=== PATIENT | male | born 1980 | race Caucasian/White ===

== ENCOUNTER 2016-11-21 15:10 | Emergency (ER) | payer SELFPAY ==
[2016-11-21 15:17] VITALS: BP 141/95
--- NOTE | 2016-11-21 15:18 | ED Physician Documentation ---
General Adult - HISTORIAN Historian: patient - HPI Stated Complaint: Redness to Left Eye Chief Complaint: General Adult Onset: days ago Timing: still present Severity: moderate Further Comments: yes (Pt is a 36 yo male with L eye pain and redness. Pt was seen for this 2 days ago at [facility] and started on abx eye drops. Sx have worsened. Pt has severe pain with looking at light. Pt is noted to have anisocoria and injection of L eye only.) - ROS CONST: no problems EYES/ENT: other (L eye pain, injection.) CVS/RESP: none GI/: none MS/SKIN/LYMPH: none - PAST HX Past History: none Allergies/Adverse Reactions: Allergies Allergy/AdvReac Type Severity Reaction Status Date / Time No Known Allergies Allergy Verified 11/21/16 15:17 Home Medications: Ambulatory Orders Medication Instructions Recorded NK [NK] 11/21/16 - SOCIAL HX Smoking History: chew - FAMILY HX Family History: No - VITAL SIGNS Vital Signs: Vital Signs Temp Pulse Resp BP Pulse Ox 98 F 98 H 18 141/95 99 11/21/16 15:10 11/21/16 15:10 11/21/16 15:10 11/21/16 15:10 11/21/16 15:10 - REVIEWED ASSESSMENTS Nursing Assessment Reviewed: Yes Vitals Reviewed: Yes Progress - Progress Progress: Continue abx eye drops. f/u ophthalmology yakov--[facility]. Tel. [phone]. General Adult Physical Exam - PHYSICAL EXAM GENERAL APPEARANCE: moderate distress EENT: unequal pupils, other (scleral injection L eye) NECK: normal inspection, supple RESPIRATORY: no resp distress, chest non-tender CVS: reg rate & rhythm, heart sounds normal SKIN: warm/dry, normal color EXTREMITIES: normal range of motion NEURO: oriented X3, motor nml, sensation nml Discharge Clincal Impression: uveitis L eye Referrals: Primary Doctor,No [Primary Care Provider] - 2 Days Home Medications: Ambulatory Orders NK [NK] 11/21/16 Condition: Stable Disposition: 01 HOME, SELF-CARE Decision to Admit: NO Decision Time: 15:26
== END 2016-11-21 15:32 | disposition home or self-care (01) ==
LOC: ED 15:10
DX: H20.012 Primary iridocyclitis, left eye (principal)
CPT/HCPCS: 99283

== ENCOUNTER 2017-09-01 06:07 | Emergency (ER) | payer OTHER ==
[2017-09-01 06:36] LABS: EOSINOPHILS % 15.8 % (0.0-6.8); MEAN CORPUSCULAR HEMOGLOBIN 32.8 pg (28.0-34.0); MEAN CORPUSCULAR VOLUME 91.4 fl (80.0-100.0); MONOCYTES % 5.3 % (0.0-11.0)
[2017-09-01 06:53] LABS: eGFR (African) > 60; eGFR (Non-African) > 60
--- NOTE | 2017-09-01 06:57 | Diagnostic Imaging Report ---
CHINA EDWARDS (MCKAYLA) - ER [facility] [address] [facility] [address] [address] Report Submission Date: Sep 01, 2017 6:35:29 AM DEMURRAGE CLERK Patient Study Name: TAVO MCKINNEY Date: Sep 01, 2017 6:24:55 AM DEMURRAGE CLERK Modality Type: CR Gender: M Description: CHEST : 84 Institution: [facility] Physician: CHINA EDWARDS) - ER Chest PA and lateral views Clinical history: Cough for 1 month Normal heart shadow and mediastinum. Clear lungs without acute infiltrate or pleural effusion. Normal bony thorax. No pneumothorax. Impression: No active pulmonary pathology Electronically signed on Sep 01, 2017 6:35:29 AM DEMURRAGE CLERK by: Philip GUERRERO
--- NOTE | 2017-09-01 06:59 | ED Physician Documentation ---
Upper Respiratory Symptoms - HISTORIAN Historian: patient - HPI Stated Complaint: cough, right ear pain Chief Complaint: Cough/ Upper Respiratory Onset: other (over 2 months ) Duration: constant (He states he has increased cough at night ) Context: denies: recent foreign travel, insect bite(s), tick(s), recent chemotherapy, multiple patients, same sx Severity: moderate Associated Symptoms: fever (on and off fever and chills ), chills, earache, runny nose, sinus pain, sinus drainage, hoarseness, productive cough, shortness of breath, hurts to breathe. denies: sore throat, bloody cough Worsened by Deep Breath: Yes (he states when he tries to take a deep breath he has increaed cough ) Further Comments: yes (He states that about two months ago (Jun) he started with cough, congestion and sinus pressure he went to his [facility] and he was treated for bronchitis. He states that he did feel "some better" after he was off the medications for 2 weeks he started to cough again and the cough started to increase. He has had fever and chills on and off. He states he returned to the [facility] and was treated for reflux cough and was given zantac. He states that he has continued to cough and he is sleeping less that 3 hours at a time.) - ROS CONST/EYES: denies: weakness CVS/RESP: shortness of breath. denies: chest pain, palpitations LYMPH: denies: rash, swollen glands, ankle swelling GI/: denies: abdominal pain, problems urinating, vomiting, nausea NEURO/PSYCH: fainting (with coughing episodes ) MS/SKIN: denies: muscle aches, rash - PAST HX Lung Disease: none PE Risk Factors: none Surgeries/Procedures: none Immunizations: UTD Allergies/Adverse Reactions: Allergies Allergy/AdvReac Type Severity Reaction Status Date / Time coconut oil Allergy Verified 09/01/17 06:36 Home Medications: Ambulatory Orders Medication Instructions Recorded Albuterol Sulfate [Proair 90 mcg IH Q6 PRN 09/01/17 Respiclick] Propranolol HCl [Inderal] 40 mg PO BID 09/01/17 Ranitidine HCl 150 mg PO BID 09/01/17 - SOCIAL HX Smoking History: non-smoker, chew Alcohol Use: none Drug Use: none - FAMILY HX Family History: none - VITAL SIGNS Vital Signs: Vital Signs Temp Pulse Resp BP Pulse Ox 98.0 F 82 16 133/82 97 09/01/17 06:10 09/01/17 06:10 09/01/17 06:10 09/01/17 06:10 09/01/17 06:10 - REVIEWED ASSESSMENTS Nursing Assessment Reviewed: Yes Vitals Reviewed: Yes Progress - Progress Progress: 735: Discussed findings. pt is agreeable to plan. DG ED Results Lab/Radiology - Lab Results Lab Results: Lab Results 09/01/17 09/01/17 06:25 06:25 WBC 7.60 K/ul K/ul (4.00-12.00) RBC 5.35 M/ul H M/ul (3.90-5.20) Hgb 17.5 g/dL g/dL (12.0-18.0) Hct 48.9 % % (37.0-53.0) MCV 91.4 fl fl (80.0-100.0) MCH 32.8 pg pg (28.0-34.0) MCHC 35.9 g/dL g/dL (30.0-36.0) RDW 13.5 % % (11.3-14.3) Plt Count 258 K/mm3 K/mm3 (130-400) Neut % (Auto) 39.6 % % (39.0-79.0) Lymph % (Auto) 35.5 % % (16.0-50.0) [place] % (Auto) 5.3 % % (0.0-11.0) Eos % (Auto) 15.8 % H % (0.0-6.8) Baso % (Auto) 1.0 (0.0-1.5) Neut # (Auto) 3.0 # k/uL # k/uL (1.4-7.7) Lymph # (Auto) 2.7 # k/uL # k/uL (0.6-4.0) [place] # (Auto) 0.4 # k/uL # k/uL (0.0-0.9) Eos # (Auto) 1.2 # k/uL H # k/uL (0.0-0.6) Baso # (Auto) 0.1 # k/uL # k/uL (0.0-0.5) Reactive Lymphs % 2.8 % % (0.0-5.0) Reactive Lymphs # 0.2 # k/uL # k/uL (0.0-0.8) Sodium 139 mmol/L mmol/L (136-145) Potassium 4.2 mmol/L mmol/L (3.5-5.1) Chloride 103 mmol/L mmol/L (98-107) Carbon Dioxide 26 mmol/L mmol/L (22-30) BUN 10 mg/dL mg/dL (9-20) Creatinine 1.00 mg/dL mg/dL (0.66-1.25) Estimated Creat Clear 173 Est GFR ( Amer) > 60 (60 - ) Est GFR (Non-Af Amer) > 60 (60 - ) Glucose 96 mg/dL mg/dL (74-106) Calcium 9.2 mg/dL mg/dL (8.4-10.2) Total Bilirubin 0.9 mg/dL mg/dL (0.2-1.3) AST 36 U/L U/L (15-46) ALT 76 U/L H U/L (13-69) Alkaline Phosphatase 41 U/L U/L (38-126) Total Protein 7.6 g/dL g/dL (6.3-8.2) Albumin 4.1 g/dL g/dL (3.5-5.0) - Orders Orders: ED Orders Category Date Time Status CHEST P.A.&LAT 2 VIEWS [RAD] Stat Exams 09/01/17 Completed CBC/PLATELET/DIFF Routine Lab 09/01/17 06:25 Completed CMP Routine Lab 09/01/17 06:25 Completed INFLUENZA A&B Stat Lab 09/01/17 06:19 Ordered Ipratropium/Albuterol Sulfate [Duoneb] Med 09/01/17 07:16 Discontinued 3 ml NEB .STK-MED ONE Ipratropium/Albuterol Sulfate [Duoneb] Med 09/01/17 07:15 Discontinued 3 ml NEB NOW ONE Upper Respiratory Symptoms - EXAM General Appearance: no acute distress, alert EENT: eyes nml inspection Neck: normal inspection Respiratory: no resp. distress, wheezes (expiratory wheezing ). No: chest wall tenderness Abdomen: non-tender CVS: reg rate & rhythm, heart sounds normal, equal pulses, no murmur Skin: color nml, no rash, warm,dry Extremities: non-tender, normal range of motion, no edema Neuro/Psych: oriented x3, neuro intact, mood/affect nml Discharge Clincal Impression: Cough Referrals: Primary Doctor,No [Primary Care Provider] - 2 Days Comments: Claritin 10 mg daily Flonase 1 spray in each nostril daily Medrol dose Pack 4 mg take as directed Continue use of proair when needed Humidifier Possible burning wood Follow up with PCP for full work up if this does not respond Return to ER for any concerning symptoms Disposition: 01 HOME, SELF-CARE Decision to Admit: NO Date of Decison to Admit: 09/01/17 Decision Time: 07:30
[2017-09-01] MEDS ORDERED: IPRATROPIUM/ALBUTEROL SULFATE 3 ML AMPUL.NEB NEB ONE ×2 (07:15→07:16)
[2017-09-01 07:44] VITALS: BP 122/79
== END 2017-09-01 07:43 | disposition home or self-care (01) ==
LOC: ED 06:07
DX: R05 Cough (principal)
CPT/HCPCS: 71020; 80053; 85025; 87400; 94640; 99283

== ENCOUNTER 2018-01-19 12:53 | Emergency (ER) | payer SELFPAY ==
[2018-01-19] MEDS ORDERED: ORPHENADRINE CITRATE 60 MG/2ML IM ONE (13:23)
[2018-01-19] MEDS ORDERED: KETOROLAC TROMETHAMINE 60 MG/2 ML VIAL IM ONE (13:23)
[2018-01-19 13:57] VITALS: BP 140/98
--- NOTE | 2018-01-19 14:03 | ED Physician Documentation ---
Upper Extremity Injury - HISTORIAN Historian: patient - HPI Stated Complaint: right shoulder pain Chief Complaint: Upper Back Injury/ Pain Onset: other (Friday) Severity: moderate Duration: lasting Context: denies: fall, blow, incision, crush Modifying Factors: pain on movement Further Comments: yes (37 year old male patient presents with right shoulder pain. 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 Concerned his shoulder is out of place.) - ROS CONST: no problems CVS/RESP: none NEURO: none MS/SKIN/LYMPH: none GI/: denies: problems urinating, nausea, vomiting - PAST HX Past History: other (HTN) Allergies/Adverse Reactions: Allergies Allergy/AdvReac Type Severity Reaction Status Date / Time coconut oil Allergy Verified 01/19/18 13:41 Home Medications: Ambulatory Orders Medication Instructions Recorded Propranolol HCl [Inderal] 40 mg PO BID 09/01/17 Ketorolac Tromethamine [Toradol] 10 mg PO TID #15 tablet 01/19/18 - SOCIAL HX Smoking History: cigarettes - FAMILY HX Family History: denies: none - VITAL SIGNS Vital Signs: Vital Signs Temp Pulse Resp BP Pulse Ox 98.2 F 80 18 140/98 98 01/19/18 14:15 01/19/18 14:15 01/19/18 14:15 01/19/18 14:15 01/19/18 14:15 - REVIEWED ASSESSMENTS Nursing Assessment Reviewed: Yes Vitals Reviewed: Yes Progress - Progress Progress: Medicated for pain with toradol and norflex IM. Sling applied for comfort. Reviewed discharge instruction. Verbalized understanding. ED Results Lab/Radiology - Radiology Radiology Impressions: Examination: Plain film right clavicle. History: RT CLAVICLE, PAIN IN RT CLAVICE SINCE 01/15/18, PT STATES UNKNOWN INJURY (Hx) Comparison exams: None provided. Findings: 2 views of the right clavicle demonstrate normal cortical margins. No fracture. No dislocation. Minimal acromioclavicular joint degenerative changes. No soft tissue abnormality. Impression: No acute osseous process. Electronically signed on January 19, 2018 1:54:12 PM CDT by: Godfrey Baxter Examination: Plain film right shoulder History: RT SHOULDER, PAIN IN RT SHOULDER SINCE 01/15/18, PT STATES UNKNOWN INJURY (Hx) Comparison exams: None provided Findings: 3 views of the right shoulder demonstrate normal cortical margins. No evidence for fracture or dislocation. No soft tissue abnormality Impression: No acute osseous process. Electronically signed on January 19, 2018 1:52:30 PM CDT by: Godfrey Baxter - Orders Orders: ED Orders Category Date Time Status Sling to Affected Extremity 1T Care 01/19/18 14:06 Active RIGHT CLAVICLE [CLAVICLE COMPLETE] [RAD] Stat Exams 01/19/18 Taken SHOULDER 2 VIEWS OR MORE [RAD] Stat Exams 01/19/18 Taken Ketorolac Tromethamine [Toradol] Med 01/19/18 13:23 Discontinued 60 mg IM NOW ONE Orphenadrine Citrate [Norflex] Med 01/19/18 13:23 Discontinued 60 mg IM NOW ONE Upper Extremity Injury Physic - Physical Exam General Appearance: mild distress Hand: normal inspection, non-tender, no evidence of injury, normal ROM Wrist: normal inspection, non-tender, no evidence of injury, normal ROM Elbow/Forearm: normal inspection, non-tender, no evidence of injury, normal ROM Shoulder: bone tenderness, limited ROM, pain, soft tissue tenderness, swelling Neuro/Vascular/Tendon: no vascular compromise, motor nml, sensation nml, ROM nml Skin: warm,dry Head/ENT: nml inspection Neck/Back: nml inspection, non-tender (no c-spine tenderness) Resp/CVS: chest non-tender, breath sounds nml, heart sounds nml, no resp. distress, lungs clear, reg. rate & rhythm Abdomen: non-tender, pelvis stable Discharge Clincal Impression: Right shoulder strain Qualifiers: Encounter type: initial encounter Qualified Code(s): S46.911A - Strain of unspecified muscle, fascia and tendon at shoulder and upper arm level, right arm , initial encounter Prescriptions: Ketorolac Tromethamine [Toradol] 10 mg PO TID #15 tablet Referrals: Primary Doctor,No [Primary Care Provider] - 2 Days Additional Instructions: Ice Rest Elevation If you are unable to bear weight and continuing to have significant pain on day 3-4; see your PCP for re-evaluation and additional xrays. You may use Tylenol every 4hour as needed for pain. Limit your dose to less than 4 G per day. Do not take ibuprofen, aleve, naproxen or any other NSAID while you are on toradol. Condition: Stable Disposition: 01 HOME, SELF-CARE Decision to Admit: NO Decision Time: 14:02
--- NOTE | 2018-01-20 06:11 | Diagnostic Imaging Report ---
CHINA EMERY (PRODUCT TEST SPECIALIST) - ER [facility] [address] [address] Report Submission Date: January 19, 2018 1:54:12 PM CDT Patient Study Name: TAVO MCKINNEY Date: January 19, 2018 1:33:23 PM CDT Modality Type: DX Gender: M Description: SHOULDER : 84 Institution: [facility] Physician: CHINA EMERY (PRODUCT TEST SPECIALIST) - ER Examination: Plain film right clavicle. History: RT CLAVICLE, PAIN IN RT CLAVICE SINCE 01/15/18, PT STATES UNKNOWN INJURY (Hx) Comparison exams: None provided. Findings: 2 views of the right clavicle demonstrate normal cortical margins. No fracture. No dislocation. Minimal acromioclavicular joint degenerative changes. No soft tissue abnormality. Impression: No acute osseous process. Electronically signed on January 19, 2018 1:54:12 PM CDT by: Godfrey GUERRERO
--- NOTE | 2018-01-20 06:12 | Diagnostic Imaging Report ---
CHINA EMERY (MANAGER COMPETITIVE INTELLIGENCE) - ER [facility] [address] [address] Report Submission Date: January 19, 2018 1:52:30 PM CDT Patient Study Name: TAVO MCKINNEY Date: January 19, 2018 1:29:15 PM CDT Modality Type: DX Gender: M Description: SHOULDER : 84 Institution: [facility] Physician: CHINA EMERY (MCKAYLA) - ER Examination: Plain film right shoulder History: RT SHOULDER, PAIN IN RT SHOULDER SINCE 01/15/18, PT STATES UNKNOWN INJURY (Hx) Comparison exams: None provided Findings: 3 views of the right shoulder demonstrate normal cortical margins. No evidence for fracture or dislocation. No soft tissue abnormality Impression: No acute osseous process. Electronically signed on January 19, 2018 1:52:30 PM CDT by: Godfrey GUERRERO
== END 2018-01-19 14:15 | disposition home or self-care (01) ==
LOC: ED 12:53
DX: S46.911A Strain of unspecified muscle, fascia and tendon at shoulder and upper arm level, right arm, initial encounter (principal); X58.XXXA Exposure to other specified factors, initial encounter; Y92.9 Unspecified place or not applicable; Y93.F2 Activity, caregiving, lifting; Y99.9 Unspecified external cause status
CPT/HCPCS: 73000; 73030; J1885; J2360; 96372; 99284

== ENCOUNTER 2018-11-27 12:03 | Outpatient (CLI) | payer BC ==
--- NOTE | 2018-11-27 13:12 | Diagnostic Imaging Report ---
<p>Your browser does not support iframes.</p> NAHUN LEBLANC [facility] [address] [facility].[address] [address] Report Submission Date: Nov 27, 2018 12:29:44 PM CDT Patient Study Name: TAVO MCKINNEY Date: Nov 27, 2018 12:11:30 PM CDT Modality Type: DX Gender: M Description: ANKLE 3 VIEWS OR MORE : 84 Institution: [facility] Physician: NAHUN LEBLANC Examination: Plain film right ankle History: PAIN IN RT UPPER ANKLE AFTER FALL X2 MONTHS AGO. WORSENING PAIN Comparison exam: None provided. Findings: 3 views of the right ankle demonstrates normal cortical margins. No fracture or dislocation. Talar dome is intact. No soft tissue swelling. No joint effusion. Impression: No acute osseous process. Electronically signed on Nov 27, 2018 12:29:44 PM CDT by: Godfrey GUERRERO
--- NOTE | 2018-11-27 13:13 | Diagnostic Imaging Report ---
NAHUN LEBLANC [facility] [address] [facility].[address] [address] Report Submission Date: Nov 27, 2018 12:30:54 PM CDT Patient Study Name: TAVO MCKINNEY Date: Nov 27, 2018 12:11:30 PM CDT Modality Type: DX Gender: M Description: TIBIA FIBULA 2 VIEW : 84 Institution: [facility] Physician: NAHUN LEBLANC Examination: Plain film right tibia/fibula History: PAIN IN MID-CALF/UPPER ANKLE AREA AFTER FALL X2 MONTHS AGO. Comparison exams: None available Findings: 4 views of the right tibia fibula demonstrates normal cortical margins. No evidence for fracture line. No soft tissue abnormality. Impression: No acute osseous abnormality. Electronically signed on Nov 27, 2018 12:30:54 PM CDT by: Godfrey GUERRERO
== END 2018-11-27 12:10 ==
LOC: RAD 12:03
PROVIDERS: ATTEND Nurse Practitioner Family
DX: M25.571 Pain in right ankle and joints of right foot (principal); M79.604 Pain in right leg
CPT/HCPCS: 73590; 73610

== ENCOUNTER 2019-02-04 08:05 | Emergency (ER) | payer BC ==
[2019-02-15 08:48] LABS: APPEARANCE,URINE CLEAR (CLEAR); COLOR,URINE YELLOW (YELLOW); OCCULT BLOOD,URINE NEGATIVE (NEGATIVE); UROBILINOGEN URINE 0.2 Eu (0.2-1.0)
[2019-02-16 17:09] LABS: MEAN CORPUSCULAR HEMOGLOBIN 31.5 pg (28.0-34.0); eGFR (Non-African) > 60
[2019-02-16 17:10] LABS: BASOPHILS % 1 % (0-2); MONOCYTES % 6 % (0-11); SEGMENTED NEUTROPHILS % 78 % (39-79)
== END 2019-02-04 10:07 ==
LOC: ED 08:05
DX: R11.2 Nausea with vomiting, unspecified (principal); R19.7 Diarrhea, unspecified; R10.13 Epigastric pain
CPT/HCPCS: 36415; 80053; 81002; 84484; 85025; 96374; 96375; 99283; 99284; S1016

== ENCOUNTER 2019-06-25 17:32 | Outpatient (CLI) | payer BC | END 2019-06-25 17:37 | LOC: LABRHC 17:32 | PROVIDERS: ATTEND Nurse Practitioner Family | DX: Z76.89 Persons encountering health services in other specified circumstances (principal) | CPT/HCPCS: 87491; 87591 ==

== ENCOUNTER 2019-09-06 09:14 | Outpatient (CLI) | payer BC | END 2019-09-06 09:24 | LOC: RT 09:14 | PROVIDERS: ATTEND Nurse Practitioner Family | DX: I10 Essential (primary) hypertension (principal) | CPT/HCPCS: 36415; 80053; 93005 ==